=== PATIENT | female | born 1930 | race African-American/Black ===

== ENCOUNTER 2019-08-14 13:25 | Inpatient (IN) | payer OTHER ==
[~2019-08-14] VITALS: Ht 165.1 cm; Wt 55.4 kg
[~2019-08-14 13:25] MED LIST: ASPI-1158 PO; LIP40 PO; PHEN100C4 PO
[2019-08-14] MEDS ORDERED: LABETALOL 5MG/ML SYR 20 MG/4 ML SYRINGE IV ONE (14:15)
[2019-08-14 14:37] LABS: HEMATOCRIT. 25.2 % (36.0-48.0); HEMOGLOBIN. 8.4 g/dL (12.0-16.0); MEAN CORPUSCULAR HEMOGLOBIN 33.6 pg (28.0-32.0); MEAN CORPUSCULAR VOLUME 101.2 fL (81.0-99.0); MEAN PLATELET VOLUME 8.5 fl (7.4-10.4); PLATELET 268 x1000/uL (130-400); RED BLOOD CELL COUNT 2.49 mill/uL (4.2-5.4); RED CELL DISTRIBUTION WIDTH 13.6 % (11.6-14.6)
[2019-08-14 14:41] LABS: CLARITY URINE TURBID (CLEAR); COLOR URINE YELLOW (YELLOW); KETONES URINE NEGATIVE (NEGATIVE); LEUKOCYTE ESTERASE URINE 2+ (NEGATIVE); NITRITE URINE NEGATIVE (NEGATIVE); OCCULT BLOOD URINE NEGATIVE (NEGATIVE); PROTEIN URINE 3+ (NEGATIVE); SPECIFIC GRAVITY URINE 1.017 (1.005-1.030); UROBILINOGEN URINE 0.2 E.U./dL (0.2-1.0)
[2019-08-14 14:45] LABS: CHLORIDE 113 mEq/L (98-107)
[2019-08-14 14:55] LABS: D-DIMER 22.95 mg/L FEU (<0.50); INR 1.1; PROTHROMBIN TIME 11.9 sec (9.6-11.0)
[2019-08-14 14:56] LABS: CREATINE KINASE 112 IU/L (26-192)
[2019-08-14] MEDS ORDERED: NICARDIPINE 40MG/200ML PREMIX 200 ML IV STA ×2 (14:58→20:38)
[2019-08-14] MEDS ORDERED: AZITHROMYCIN 500 MG in DEXT 5% WATER 250 ML IV STA (15:06)
[2019-08-14] MEDS ORDERED: CEFTRIAXONE 1 G PREMIX 50 ML IV ONE (15:15)
[2019-08-14] MEDS ORDERED: DEXAMETHASONE 10 MG/ML VIAL IV ONE (15:15)
[2019-08-14] MEDS ORDERED: ACETAMINOPHEN 325MG TABLET PO PRN (16:15)
[2019-08-14] MEDS ORDERED: HYDRALAZINE 20MG/ML VIAL IV NR (16:15)
[2019-08-14] MEDS ORDERED: SODIUM CHLORIDE 0.45% 1,000 ML IV SCH (16:30)
[2019-08-14] MEDS ORDERED: ENOXAPARIN 30MG/0.3ML SYR SUBCUT SCH (17:00)
[2019-08-14] MEDS ORDERED: AMLODIPINE 5MG TABLET PO SCH (21:00)
[2019-08-14] MEDS: HYDRALAZINE HCL 100MG TABLET PO SCH (22:00)
[2019-08-14 22:05] LABS: PLATELET ESTIMATE NORMAL
[2019-08-15 04:22] LABS: BASOPHILS % 0.4 % (0.0-2.0); HEMATOCRIT. 23.8 % (36.0-48.0); HEMOGLOBIN. 8.2 g/dL (12.0-16.0); LYMPHOCYTES % 12.9 % (20.0-50.0); MEAN CORPUSCULAR HEMOGLOBIN 34.4 pg (28.0-32.0); MEAN CORPUSCULAR VOLUME 99.8 fL (81.0-99.0); MEAN PLATELET VOLUME 8.8 fl (7.4-10.4); MONOCYTES % 2.8 % (2.0-8.0); NEUTROPHILS % 83.9 % (40.0-76.0); PLATELET 230 x1000/uL (130-400); RED BLOOD CELL COUNT 2.39 mill/uL (4.2-5.4); RED CELL DISTRIBUTION WIDTH 13.5 % (11.6-14.6)
[2019-08-15] MEDS: ONDANSETRON HCL 4MG/2ML INJ IV PRN (06:57)
[2019-08-15] MEDS ORDERED: AMLODIPINE 10MG TABLET PO ONE (08:15)
[2019-08-15] MEDS: AMLODIPINE 10MG TABLET PO SCH (08:18)
[2019-08-15] MEDS: DEXAMETHASONE 10 MG/ML VIAL IV SCH (09:00)
[2019-08-15] MEDS: PANTOPRAZOLE SODIUM 40 MG/VIAL IV SCH (09:00)
[2019-08-15] MEDS: AZITHROMYCIN 500 MG TABLET PO SCH (09:00)
[2019-08-15] MEDS: SODIUM BICARBONATE 100 MEQ in DEXTROSE 5% WATER 1,000 ML IV SCH (11:30)
[2019-08-15] MEDS: HYDRALAZINE HCL 100MG TABLET PO SCH ×2 (14:00→18:10)
[2019-08-15] MEDS ORDERED: CEFTRIAXONE 1 G PREMIX 50 ML IV SCH (15:30)
[2019-08-15 17:26] LABS: BG DEOXYHEMOGLOBIN 2.1 % (0.0-5.0); BG FRACTION INSPIRED OXYGEN 28; BG METHEMOGLOBIN 0.2 % (0.0-1.5); BG OXYGEN SATURATION 97.9 % (92.0-98.5); BG OXYHEMOGLOBIN 97.7 % (94.0-97.0); BG PCO2 28.5 mmHg (35.0-45.0); BG PH 7.393 (7.350-7.450); BG PO2 109.5 mmHg (75.0-100.0); BG SAMPLE SITE RIGHT RADIAL; BG TOTAL HEMOGLOBIN 8.2 g/dL (12.0-18.0); BG VENT MODE NASAL CANNULA
[2019-08-15] MEDS ORDERED: CLONIDINE 0.2MG TABLET PO NR (19:00)
[2019-08-15] MEDS: NICARDIPINE 40MG/200ML PREMIX 200 ML IV PRN ×2 (21:54)
[2019-08-15] MEDS ORDERED: CLONIDINE 0.2MG TABLET PO SCH (22:00)
[2019-08-16] VITALS (34 sets, daily range): BP systolic 92–164; BP diastolic 45–82
[2019-08-16] MEDS ORDERED: NICARDIPINE 50 MG in SODIUM CHLORIDE 0.9% 230 ML IV PRN (03:30)
[2019-08-16] MEDS ORDERED: LOPHC5 PO (04:09)
[2019-08-16] MEDS ORDERED: HYDR-2510 MT (04:09)
[2019-08-16] MEDS ORDERED: KEPP500 PO (04:09)
[2019-08-16] MEDS ORDERED: CLON0.1T MT (04:10)
[2019-08-16] MEDS: HYDRALAZINE HCL 100MG TABLET PO SCH ×3 (05:33→22:10)
[2019-08-16 07:58] LABS: BG BASE EXCESS -5.2 mmol/L (-2.0-2.0); BG CARBOXYHEMOGLOBIN 0.4 % (0.5-1.5); BG DEOXYHEMOGLOBIN 1.7 % (0.0-5.0); BG FRACTION INSPIRED OXYGEN 28; BG HCO3 ACT 18.8 mmol/L (22.0-26.0); BG METHEMOGLOBIN 0.5 % (0.0-1.5); BG OXYGEN SATURATION 98.3 % (92.0-98.5); BG OXYHEMOGLOBIN 97.4 % (94.0-97.0); BG PCO2 30.1 mmHg (35.0-45.0); BG PH 7.414 (7.350-7.450); BG SAMPLE SITE RIGHT RADIAL; BG TOTAL HEMOGLOBIN 6.6 g/dL (12.0-18.0); BG VENT MODE NASAL CANNULA
[2019-08-16] MEDS: PANTOPRAZOLE SODIUM 40 MG/VIAL IV SCH ×2 (08:21→22:10)
[2019-08-16] MEDS: AZITHROMYCIN 500 MG TABLET PO SCH (08:22)
[2019-08-16] MEDS: DEXAMETHASONE 10 MG/ML VIAL IV SCH (08:22)
[2019-08-16] MEDS: AMLODIPINE 10MG TABLET PO SCH (08:22)
[2019-08-16] MEDS ORDERED: LIDOCAINE HCL 1% 20ML VIAL (Pyxis) INJ ONE (09:15)
[2019-08-16 09:26] LABS: PHOSPHORUS 3.9 mg/dL (2.5-4.9)
[2019-08-16] MEDS ORDERED: IPRATROPIUM/ALBUTEROL 0.5-3(2.5)MG/3ML NEB HHN PRN (10:00)
[2019-08-16] MEDS: SODIUM BICARBONATE 100 MEQ in DEXTROSE 5% WATER 1,000 ML IV SCH (10:18)
[2019-08-16 10:33] LABS: BASOPHILS % 0.1 % (0.0-2.0); LYMPHOCYTES % 16.7 % (20.0-50.0); MEAN CORPUSCULAR VOLUME 99.7 fL (81.0-99.0); MONOCYTES % 6.9 % (2.0-8.0); NEUTROPHILS % 76.3 % (40.0-76.0); PLATELET 220 x1000/uL (130-400); RED BLOOD CELL COUNT 1.89 mill/uL (4.2-5.4); RED CELL DISTRIBUTION WIDTH 13.2 % (11.6-14.6)
[2019-08-16 10:41] LABS: HEMATOCRIT. 18.8 % (36.0-48.0); HEMOGLOBIN. 6.4 g/dL (12.0-16.0)
[2019-08-16 12:23] LABS: TOTAL IRON BINDING CAPACITY 226 ug/dL (250-450)
[2019-08-16 12:41] LABS: FOLIC ACID (FOLATE) SERUM 8.8 ng/mL (>5.38)
[2019-08-16] MEDS ORDERED: DIATR MEGLU/DIATRIZOATE SOLN 30ML PO SCH (12:45)
[2019-08-16] MEDS: CLONIDINE 0.1MG TABLET PO SCH ×2 (13:48→22:11)
[2019-08-16] MEDS: CEFTRIAXONE 1 G PREMIX 50 ML IV SCH (18:59)
[2019-08-16 21:28] LABS: HEMATOCRIT 23.6 % (36.0-48.0); HEMOGLOBIN 8.3 g/dL (12.0-16.0)
[2019-08-16 21:35] LABS: INR 1.2; PROTHROMBIN TIME 12.2 sec (9.6-11.0)
[2019-08-17] VITALS (10 sets, daily range): BP systolic 121–153; BP diastolic 59–94
[2019-08-17] MEDS: CLONIDINE 0.1MG TABLET PO SCH ×3 (06:25→22:00)
[2019-08-17] MEDS: HYDRALAZINE HCL 100MG TABLET PO SCH ×3 (06:25→22:00)
[2019-08-17 06:37] LABS: BASOPHILS % 0.1 % (0.0-2.0); HEMATOCRIT. 22.4 % (36.0-48.0); HEMOGLOBIN. 7.7 g/dL (12.0-16.0); LYMPHOCYTES % 15.1 % (20.0-50.0); MEAN CORPUSCULAR HEMOGLOBIN 32.6 pg (28.0-32.0); MEAN CORPUSCULAR VOLUME 94.7 fL (81.0-99.0); MEAN PLATELET VOLUME 8.8 fl (7.4-10.4); NEUTROPHILS % 75.8 % (40.0-76.0); PLATELET 183 x1000/uL (130-400); RED BLOOD CELL COUNT 2.37 mill/uL (4.2-5.4); RED CELL DISTRIBUTION WIDTH 17.4 % (11.6-14.6)
[2019-08-17 07:11] LABS: HEPATITIS B SURFACE ANTIGEN NEGATIVE
[2019-08-17] MEDS: AZITHROMYCIN 500 MG TABLET PO SCH (08:33)
[2019-08-17] MEDS: FOLIC ACID/VITAMIN B COMP W-C TABLET PO SCH (08:33)
[2019-08-17] MEDS: PANTOPRAZOLE SODIUM 40 MG/VIAL IV SCH ×2 (08:33→22:00)
[2019-08-17] MEDS: AMLODIPINE 10MG TABLET PO SCH (08:33)
[2019-08-17] MEDS ORDERED: DIATR MEGLU/DIATRIZOATE SOLN 30ML PO NR (09:00)
[2019-08-17] MEDS: CEFTRIAXONE 1 G PREMIX 50 ML IV SCH (15:53)
[2019-08-17] MEDS: ONDANSETRON HCL 4MG/2ML INJ IV PRN (22:10)
[2019-08-18] VITALS: BP 140/74
[2019-08-18 04:00] VITALS: BP 149/69
[2019-08-18] MEDS: HYDRALAZINE HCL 100MG TABLET PO SCH ×3 (05:35→22:58)
[2019-08-18] MEDS: CLONIDINE 0.1MG TABLET PO SCH ×3 (05:36→22:58)
[2019-08-18 06:48] LABS: BASOPHILS % 0.2 % (0.0-2.0); EOSINOPHILS % 0.3 % (0.0-5.0); HEMATOCRIT. 23.8 % (36.0-48.0); LYMPHOCYTES % 30.6 % (20.0-50.0); MEAN CORPUSCULAR HEMOGLOBIN 32.1 pg (28.0-32.0); MEAN PLATELET VOLUME 8.8 fl (7.4-10.4); MONOCYTES % 10.6 % (2.0-8.0); NEUTROPHILS % 58.3 % (40.0-76.0); PLATELET 164 x1000/uL (130-400); RED BLOOD CELL COUNT 2.51 mill/uL (4.2-5.4)
[2019-08-18 08:00] VITALS: BP 142/77
[2019-08-18] MEDS: AMLODIPINE 10MG TABLET PO SCH (09:32)
[2019-08-18] MEDS: AZITHROMYCIN 500 MG TABLET PO SCH (09:32)
[2019-08-18] MEDS: FOLIC ACID/VITAMIN B COMP W-C TABLET PO SCH (09:32)
[2019-08-18] MEDS: PANTOPRAZOLE SODIUM 40 MG/VIAL IV SCH ×2 (10:39→21:00)
[2019-08-18 12:00] VITALS: BP 127/64
[2019-08-18] MEDS ORDERED: LIDOCAINE HCL 1% 20ML VIAL (Pyxis) INJ ONE (14:45)
[2019-08-18] MEDS ORDERED: SODIUM CHLORIDE 0.9% 10ML VIAL ONE (14:45)
[2019-08-18] MEDS: CEFTRIAXONE 1 G PREMIX 50 ML IV SCH (15:47)
[2019-08-18 16:00] VITALS: BP 178/76
[2019-08-18] MEDS: CLONIDINE 0.1MG TABLET PO PRN (16:36)
[2019-08-18 20:00] VITALS: BP 161/81
[2019-08-19] VITALS (7 sets, daily range): BP systolic 141–164; BP diastolic 69–95
[2019-08-19] MEDS: CLONIDINE 0.1MG TABLET PO SCH ×3 (05:27→21:20)
[2019-08-19] MEDS: HYDRALAZINE HCL 100MG TABLET PO SCH ×3 (05:27→21:21)
[2019-08-19 06:06] LABS: HEPATITIS B SURFACE AB < 3.1 mIU/mL
[2019-08-19 06:14] LABS: HEMATOCRIT. 23.3 % (36.0-48.0); MEAN CORPUSCULAR HEMOGLOBIN 32.5 pg (28.0-32.0); MEAN CORPUSCULAR VOLUME 94.6 fL (81.0-99.0); RED BLOOD CELL COUNT 2.46 mill/uL (4.2-5.4); RED CELL DISTRIBUTION WIDTH 16.8 % (11.6-14.6)
[2019-08-19 06:17] LABS: HEPATITIS B SURFACE ANTIGEN NEGATIVE
[2019-08-19 06:47] LABS: HEPATITIS A AB IGM NEGATIVE (NEGATIVE)
[2019-08-19] MEDS: AMLODIPINE 10MG TABLET PO SCH (08:08)
[2019-08-19] MEDS: PANTOPRAZOLE SODIUM 40 MG/VIAL IV SCH ×2 (08:08→21:20)
[2019-08-19] MEDS: FOLIC ACID/VITAMIN B COMP W-C TABLET PO SCH (08:08)
[2019-08-19] MEDS: AZITHROMYCIN 500 MG TABLET PO SCH (08:08)
[2019-08-19 11:05] LABS: PLATELET ESTIMATE NORMAL
[2019-08-19 11:06] LABS: PLATELET 128 x1000/uL (130-400)
[2019-08-19] MEDS: CEFTRIAXONE 1 G PREMIX 50 ML IV SCH (15:00)
[2019-08-20] VITALS (8 sets, daily range): BP systolic 123–156; BP diastolic 55–81
[2019-08-20] MEDS: CLONIDINE 0.1MG TABLET PO SCH ×3 (05:28→21:00)
[2019-08-20] MEDS: HYDRALAZINE HCL 100MG TABLET PO SCH ×3 (05:28→21:00)
[2019-08-20 05:39] LABS: HEMATOCRIT. 24.2 % (36.0-48.0); HEMOGLOBIN. 8.2 g/dL (12.0-16.0); MEAN CORPUSCULAR HEMOGLOBIN 32.2 pg (28.0-32.0); MEAN CORPUSCULAR VOLUME 95.3 fL (81.0-99.0); MEAN PLATELET VOLUME 8.8 fl (7.4-10.4); PLATELET 107 x1000/uL (130-400); RED BLOOD CELL COUNT 2.55 mill/uL (4.2-5.4); RED CELL DISTRIBUTION WIDTH 16.5 % (11.6-14.6)
[2019-08-20 07:57] LABS: PLATELET ESTIMATE DECREASED
[2019-08-20] MEDS: FOLIC ACID/VITAMIN B COMP W-C TABLET PO SCH (08:41)
[2019-08-20] MEDS: PANTOPRAZOLE SODIUM 40 MG/VIAL IV SCH ×2 (08:41→20:56)
[2019-08-20] MEDS: AZITHROMYCIN 500 MG TABLET PO SCH (08:42)
[2019-08-20] MEDS: AMLODIPINE 10MG TABLET PO SCH (08:42)
[2019-08-20] MEDS: CLONIDINE 0.1MG TABLET PO PRN (18:58)
[2019-08-21] VITALS (9 sets, daily range): BP systolic 130–181; BP diastolic 59–81
[2019-08-21] MEDS: CLONIDINE 0.1MG TABLET PO PRN ×2 (03:21→16:13)
[2019-08-21] MEDS: CLONIDINE 0.1MG TABLET PO SCH ×3 (05:51→21:38)
[2019-08-21] MEDS: HYDRALAZINE HCL 100MG TABLET PO SCH ×3 (05:51→21:37)
[2019-08-21 07:13] LABS: HEMATOCRIT. 23.1 % (36.0-48.0); HEMOGLOBIN. 7.9 g/dL (12.0-16.0); MEAN CORPUSCULAR HEMOGLOBIN 32.7 pg (28.0-32.0); MEAN CORPUSCULAR VOLUME 95.3 fL (81.0-99.0); RED BLOOD CELL COUNT 2.42 mill/uL (4.2-5.4); RED CELL DISTRIBUTION WIDTH 16.5 % (11.6-14.6)
[2019-08-21] MEDS: FOLIC ACID/VITAMIN B COMP W-C TABLET PO SCH (08:27)
[2019-08-21] MEDS: PANTOPRAZOLE SODIUM 40 MG/VIAL IV SCH ×2 (08:27→21:37)
[2019-08-21] MEDS: AMLODIPINE 10MG TABLET PO SCH (08:27)
[2019-08-21 09:24] LABS: PLATELET 110 x1000/uL (130-400)
[2019-08-21 09:33] LABS: PLATELET ESTIMATE SLIGHTLY DECREASED
[2019-08-21 10:44] LABS: TOTAL IRON BINDING CAPACITY 230 ug/dL (250-450)
[2019-08-22] VITALS (9 sets, daily range): BP systolic 114–159; BP diastolic 53–77
[2019-08-22] MEDS: HYDRALAZINE HCL 100MG TABLET PO SCH ×3 (05:51→21:18)
[2019-08-22] MEDS: CLONIDINE 0.1MG TABLET PO SCH ×3 (05:51→21:18)
[2019-08-22 06:07] LABS: HEMATOCRIT. 24.3 % (36.0-48.0); HEMOGLOBIN. 8.2 g/dL (12.0-16.0); MEAN CORPUSCULAR HEMOGLOBIN 32.3 pg (28.0-32.0); MEAN CORPUSCULAR VOLUME 95.9 fL (81.0-99.0); PLATELET 97 x1000/uL (130-400); RED BLOOD CELL COUNT 2.54 mill/uL (4.2-5.4); RED CELL DISTRIBUTION WIDTH 16.4 % (11.6-14.6)
[2019-08-22] MEDS: PANTOPRAZOLE SODIUM 40 MG/VIAL IV SCH ×2 (09:03→21:19)
[2019-08-22] MEDS: AMLODIPINE 10MG TABLET PO SCH (09:03)
[2019-08-22] MEDS: FOLIC ACID/VITAMIN B COMP W-C TABLET PO SCH (09:03)
[2019-08-22] MEDS: FERROUS SULFATE 300MG/5ML UDC PO SCH ×2 (09:03→17:26)
[2019-08-22 13:18] LABS: PLATELET ESTIMATE DECREASED
[2019-08-23] VITALS (19 sets, daily range): BP systolic 133–179; BP diastolic 56–85
[2019-08-23 06:12] LABS: BASOPHILS % 0.5 % (0.0-2.0); HEMATOCRIT. 23.7 % (36.0-48.0); HEMOGLOBIN. 8.1 g/dL (12.0-16.0); LYMPHOCYTES % 22.3 % (20.0-50.0); MEAN CORPUSCULAR VOLUME 96.3 fL (81.0-99.0); MEAN PLATELET VOLUME 8.9 fl (7.4-10.4); MONOCYTES % 10.2 % (2.0-8.0); PLATELET 105 x1000/uL (130-400); RED BLOOD CELL COUNT 2.46 mill/uL (4.2-5.4); RED CELL DISTRIBUTION WIDTH 16.6 % (11.6-14.6)
[2019-08-23] MEDS: CLONIDINE 0.1MG TABLET PO SCH ×2 (06:19→15:00)
[2019-08-23] MEDS: HYDRALAZINE HCL 100MG TABLET PO SCH ×2 (06:19→15:00)
[2019-08-23] MEDS: PANTOPRAZOLE SODIUM 40 MG/VIAL IV SCH (08:27)
[2019-08-23] MEDS: FERROUS SULFATE 300MG/5ML UDC PO SCH (08:27)
[2019-08-23] MEDS: AMLODIPINE 10MG TABLET PO SCH (08:27)
[2019-08-23] MEDS: FOLIC ACID/VITAMIN B COMP W-C TABLET PO SCH (08:27)
[2019-08-23] MEDS ORDERED: SODIUM BICARBONATE 4% (2.4MEQ) 5ML VIAL IV ONE (13:24)
[2019-08-23] MEDS ORDERED: LIDOCAINE HCL 1% 20ML VIAL (Pyxis) INJ ONE (13:24)
[2019-08-23] MEDS ORDERED: CEFAZOLIN 1000MG PREMIX 50 ML IV ONE (13:36)
[2019-08-23 13:51] LABS: PARTIAL THROMBOPLASTIN TIME 23.1 sec (23.4-31.0)
[2019-08-23] MEDS ORDERED: CEFAZOLIN 1000MG PREMIX 50 ML IV NR (14:00)
[2019-08-23] MEDS ORDERED: FENTANYL CITRATE/PF 50MCG/ML 2ML VIAL ONE (14:03)
[2019-08-23] MEDS ORDERED: FENTANYL CITRATE/PF 50MCG/ML 2ML VIAL IV ONE (14:15)
[2019-08-23] MEDS ORDERED: NEPVIT PO (15:45)
[2019-08-23] MEDS ORDERED: FE300LUD PO (15:45)
== END 2019-08-23 23:41 | disposition home or self-care (01) | DRG 871 ==
LOC: EDBEDREQ 14:07 → ER 14:22 → EDBEDREQ 15:07 → EDBEDREQSVC 15:07 → MICUSO 23:11 → CVICU 08-16 02:30 → 5EST 08-16 15:00
PROVIDERS: ADMIT Internal Medicine; ATTEND Internal Medicine
PROC: 05HY33Z Insertion of Infusion Device into Upper Vein, Percutaneous Approach (ICD-10-PCS; principal; 2019-08-16)
PROC: 30233N1 Transfusion of Nonautologous Red Blood Cells into Peripheral Vein, Percutaneous Approach (ICD-10-PCS; 2019-08-16)
PROC: 02HV33Z Insertion of Infusion Device into Superior Vena Cava, Percutaneous Approach (ICD-10-PCS; 2019-08-18)
PROC: B518ZZA Fluoroscopy of Superior Vena Cava, Guidance (ICD-10-PCS; 2019-08-18)
PROC: B548ZZA Ultrasonography of Superior Vena Cava, Guidance (ICD-10-PCS; 2019-08-18)
PROC: 5A1D70Z Performance of Urinary Filtration, Intermittent, Less than 6 Hours Per Day (ICD-10-PCS; 2019-08-18)
PROC: 5A1D70Z Performance of Urinary Filtration, Intermittent, Less than 6 Hours Per Day (ICD-10-PCS; 2019-08-19)
PROC: 5A1D70Z Performance of Urinary Filtration, Intermittent, Less than 6 Hours Per Day (ICD-10-PCS; 2019-08-21)
PROC: 02PYX3Z Removal of Infusion Device from Great Vessel, External Approach (ICD-10-PCS; 2019-08-23)
PROC: 0JH63XZ Insertion of Tunneled Vascular Access Device into Chest Subcutaneous Tissue and Fascia, Percutaneous Approach (ICD-10-PCS; 2019-08-23)
PROC: 02HV33Z Insertion of Infusion Device into Superior Vena Cava, Percutaneous Approach (ICD-10-PCS; 2019-08-23)
PROC: B518ZZA Fluoroscopy of Superior Vena Cava, Guidance (ICD-10-PCS; 2019-08-23)
DX: A41.9 Sepsis, unspecified organism (principal); J96.00 Acute respiratory failure, unspecified whether with hypoxia or hypercapnia; J18.9 Pneumonia, unspecified organism; E44.0 Moderate protein-calorie malnutrition; E87.2 Acidosis; N17.9 Acute kidney failure, unspecified; N39.0 Urinary tract infection, site not specified; I16.1 Hypertensive emergency; D68.59 Other primary thrombophilia; G93.40 Encephalopathy, unspecified; I13.0 Hypertensive heart and chronic kidney disease with heart failure and stage 1 through stage 4 chronic kidney disease, or unspecified chronic kidney disease; D64.9 Anemia, unspecified; E87.5 Hyperkalemia; N18.9 Chronic kidney disease, unspecified; G40.909 Epilepsy, unspecified, not intractable, without status epilepticus; E86.0 Dehydration; N28.1 Cyst of kidney, acquired; I50.9 Heart failure, unspecified; Z20.828 Contact with and (suspected) exposure to other viral communicable diseases; K57.90 Diverticulosis of intestine, part unspecified, without perforation or abscess without bleeding; K80.20 Calculus of gallbladder without cholecystitis without obstruction; Z79.82 Long term (current) use of aspirin; Z79.899 Other long term (current) drug therapy; Z68.20 Body mass index [BMI] 20.0-20.9, adult; Z86.718 Personal history of other venous thrombosis and embolism
CPT/HCPCS: 36415; 36558; 36589; 36600; 71045; 74176; 76770; 76937; 77001; 80048; 80053; 80185; 81003; 82140; 82270; 82375; 82550; 82575; 82607; 82728; 82746; 82805; 82962; 83036; 83540; 83550; 83605; 83615; 83880; 84100; 84145; 84156; 84484; 85014; 85018; 85025; 85049; 85379; 85384; 86140; 86705; 86706; 86709; 86803; 86850; 86900; 86920; 87340; 87804; 92610; 93005; 93306; 93970; 96365; 97162; 97166; 97530; 99152; 99153; 99291; C1725; C1750; C1752; C1769; C1887; C9113; J0360; J0456; J0690; J0696; J1100; J1642; J1650; J2405; J3010; J3490; J7050; J7060; J7070; P9016; Q9963; G0500; U0003-CS

== ENCOUNTER 2019-09-10 20:00 | Inpatient (IN) | payer OTHER ==
[~2019-09-10] VITALS: Ht 157.5 cm; Wt 45.4 kg
[~2019-09-10 20:00] MED LIST changes: +CLON0.1T MT; +FE300LUD PO; +HYDR-2510 MT; +KEPP500 PO; +LOPHC5 PO; +NEPVIT PO
[2019-09-10] MEDS ORDERED: ACETAMINOPHEN 325MG TABLET PO STA (22:05)
[2019-09-10 23:03] LABS: BASOPHILS % 1.3 % (0.0-2.0); EOSINOPHILS % 0.7 % (0.0-5.0); HEMATOCRIT. 28.4 % (36.0-48.0); HEMOGLOBIN. 9.3 g/dL (12.0-16.0); LYMPHOCYTES % 30.5 % (20.0-50.0); MEAN CORPUSCULAR HEMOGLOBIN 32.4 pg (28.0-32.0); MEAN CORPUSCULAR VOLUME 99.4 fL (81.0-99.0); MEAN PLATELET VOLUME 7.4 fl (7.4-10.4); MONOCYTES % 13.2 % (2.0-8.0); NEUTROPHILS % 54.3 % (40.0-76.0); PLATELET 268 x1000/uL (130-400); RED BLOOD CELL COUNT 2.86 mill/uL (4.2-5.4); RED CELL DISTRIBUTION WIDTH 17.8 % (11.6-14.6)
[2019-09-10 23:05] LABS: CHLORIDE 97 mEq/L (98-107)
[2019-09-10 23:10] LABS: PROTHROMBIN TIME 10.9 sec (9.6-11.0)
[2019-09-11 00:03] LABS: CLARITY URINE TURBID (CLEAR); COLOR URINE DARK YELLOW (YELLOW); KETONES URINE TRACE (NEGATIVE); LEUKOCYTE ESTERASE URINE 3+ (NEGATIVE); NITRITE URINE NEGATIVE (NEGATIVE); OCCULT BLOOD URINE NEGATIVE (NEGATIVE); PROTEIN URINE 3+ (NEGATIVE)
[2019-09-11] MEDS ORDERED: SODIUM CHLORIDE 0.9% 1,000 ML IV ONE (00:15)
[2019-09-11] MEDS ORDERED: CEFTRIAXONE 1 G PREMIX 50 ML IV ONE (01:00)
[2019-09-11] MEDS ORDERED: SORBITOL 70% SOLN 30ML PO ONE (08:45)
[2019-09-11] MEDS ORDERED: BISACODYL 10MG SUPP PR ONE (08:45)
[2019-09-11] MEDS ORDERED: ACETAMINOPHEN 325MG TABLET PO PRN (08:45)
[2019-09-11] MEDS ORDERED: ONDANSETRON HCL 4MG/2ML INJ IV PRN (08:45)
[2019-09-11] MEDS ORDERED: POTASSIUM CHLORIDE 20MEQ TABLET SR PO ONE (08:45)
[2019-09-11] MEDS ORDERED: CEFTRIAXONE 1 G PREMIX 50 ML IV SCH (08:45)
[2019-09-11] MEDS: AMLODIPINE 10MG TABLET PO SCH (09:15)
[2019-09-11] MEDS: CLONIDINE 0.1MG TABLET PO PRN (11:00)
[2019-09-11 12:00] VITALS: BP 171/69
[2019-09-11] MEDS ORDERED: HYDRALAZINE HCL 100MG TABLET PO SCH (12:45)
[2019-09-11 13:50] VITALS: BP 171/69
[2019-09-11 16:00] VITALS: BP_SYST 130; BP_SYST 172; BP_DIAS 65; BP_DIAS 70
[2019-09-11 16:15] LABS: BASOPHILS % 0.9 % (0.0-2.0); EOSINOPHILS % 1.1 % (0.0-5.0); HEMATOCRIT. 29.9 % (36.0-48.0); LYMPHOCYTES % 13.8 % (20.0-50.0); MEAN CORPUSCULAR HEMOGLOBIN 33.2 pg (28.0-32.0); MEAN PLATELET VOLUME 7.8 fl (7.4-10.4); MONOCYTES % 6.9 % (2.0-8.0); NEUTROPHILS % 77.3 % (40.0-76.0); PLATELET 286 x1000/uL (130-400); RED BLOOD CELL COUNT 3.02 mill/uL (4.2-5.4); RED CELL DISTRIBUTION WIDTH 17.8 % (11.6-14.6)
[2019-09-11] MEDS: POTASSIUM CHLORIDE 20MEQ TABLET SR PO NR ×2 (17:31→17:36)
[2019-09-11 20:00] VITALS: BP 157/57
[2019-09-11] MEDS: HYDRALAZINE HCL 100MG TABLET PO SCH (21:39)
[2019-09-11] MEDS: LEVETIRACETAM 500MG TABLET PO SCH (21:41)
[2019-09-11] MEDS ORDERED: CEFTRIAXONE 1,000 MG in DEXTROSE 5% WATER 50 ML IV SCH (23:00)
[2019-09-12] VITALS: BP 103/65
[2019-09-12] MEDS: CEFTRIAXONE 1,000 MG in DEXTROSE 5% WATER 50 ML IV SCH ×2 (00:04→20:52)
[2019-09-12 04:00] VITALS: BP 154/69
[2019-09-12] MEDS: HYDRALAZINE HCL 100MG TABLET PO SCH ×3 (06:37→20:53)
[2019-09-12 07:29] LABS: HEMATOCRIT. 29.6 % (36.0-48.0); HEMOGLOBIN. 9.7 g/dL (12.0-16.0); MEAN CORPUSCULAR HEMOGLOBIN 32.6 pg (28.0-32.0); MEAN CORPUSCULAR VOLUME 99.5 fL (81.0-99.0); MEAN PLATELET VOLUME 7.3 fl (7.4-10.4); PLATELET 260 x1000/uL (130-400); RED BLOOD CELL COUNT 2.97 mill/uL (4.2-5.4); RED CELL DISTRIBUTION WIDTH 17.8 % (11.6-14.6)
[2019-09-12 08:00] VITALS: BP 201/83
[2019-09-12] MEDS: LEVETIRACETAM 500MG TABLET PO SCH ×2 (09:19→20:54)
[2019-09-12] MEDS: AMLODIPINE 10MG TABLET PO SCH (09:19)
[2019-09-12] MEDS: CLONIDINE 0.1MG TABLET PO PRN (10:35)
[2019-09-12 11:53] LABS: ATYPICAL LYMPHOCYTES 1; PLATELET ESTIMATE NORMAL
[2019-09-12 12:00] VITALS: BP 149/54
[2019-09-12] MEDS ORDERED: NA PHOS,M-B/NA PHOS,DI-BA ENEMA 118ML PR NR (13:30)
[2019-09-12 16:00] VITALS: BP 166/56
[2019-09-12] MEDS: CLONIDINE 0.1MG TABLET PO SCH ×2 (17:20→20:54)
[2019-09-12 20:00] VITALS: BP 145/59
[2019-09-13] VITALS (7 sets, daily range): BP systolic 124–158; BP diastolic 48–66
[2019-09-13] MEDS: CLONIDINE 0.1MG TABLET PO SCH ×3 (06:03→21:03)
[2019-09-13] MEDS: HYDRALAZINE HCL 100MG TABLET PO SCH ×3 (06:03→21:03)
[2019-09-13 07:32] LABS: BASOPHILS % 1.2 % (0.0-2.0); EOSINOPHILS % 1.7 % (0.0-5.0); HEMOGLOBIN. 8.9 g/dL (12.0-16.0); LYMPHOCYTES % 22.9 % (20.0-50.0); MEAN CORPUSCULAR HEMOGLOBIN 32.9 pg (28.0-32.0); MEAN CORPUSCULAR VOLUME 99.7 fL (81.0-99.0); MONOCYTES % 7.7 % (2.0-8.0); NEUTROPHILS % 66.5 % (40.0-76.0); PLATELET 247 x1000/uL (130-400); RED CELL DISTRIBUTION WIDTH 17.7 % (11.6-14.6)
[2019-09-13] MEDS: AMLODIPINE 10MG TABLET PO SCH (09:21)
[2019-09-13] MEDS: LEVETIRACETAM 500MG TABLET PO SCH ×2 (09:21→21:02)
[2019-09-13] MEDS ORDERED: SORBITOL 70% SOLN 30ML PO NR (14:15)
[2019-09-13] MEDS ORDERED: NA PHOS,M-B/NA PHOS,DI-BA ENEMA 118ML PR NR (14:15)
[2019-09-13] MEDS ORDERED: HEPARIN SODIUM 1,000 UNIT/1ML VIAL IV NR (15:00)
[2019-09-13] MEDS ORDERED: LEVOFLOXACIN 500MG TABLET PO NR (22:00)
[2019-09-14] VITALS: BP 119/52
[2019-09-14 04:00] VITALS: BP 114/51
[2019-09-14] MEDS: HYDRALAZINE HCL 100MG TABLET PO SCH ×2 (05:48→13:05)
[2019-09-14] MEDS: CLONIDINE 0.1MG TABLET PO SCH ×2 (05:48→13:05)
[2019-09-14] MEDS: LEVETIRACETAM 500MG TABLET PO SCH (09:24)
[2019-09-14] MEDS: AMLODIPINE 10MG TABLET PO SCH (09:25)
[2019-09-14] MEDS ORDERED: HYDR100T26 PO (12:19)
[2019-09-14] MEDS ORDERED: DOCU250C14 MT (12:19)
[2019-09-14] MEDS ORDERED: LEVO500T2 MT (12:19)
[2019-09-14] MEDS ORDERED: AMLO10TA80 PO (12:19)
[2019-09-14] MEDS ORDERED: SORBITOL 70% SOLN 30ML PO NR (12:30)
[2019-09-14 20:00] VITALS: BP 139/70
[2019-09-15] MEDS ORDERED: LEVOFLOXACIN 250MG TABLET PO SCH (09:00)
== END 2019-09-14 21:30 | disposition home or self-care (01) | DRG 388 ==
LOC: ER 20:15 → 6EST 09-11 00:59 → ENRESERV 09-11 10:45
PROVIDERS: ADMIT Internal Medicine; ATTEND Internal Medicine
PROC: 5A1D70Z Performance of Urinary Filtration, Intermittent, Less than 6 Hours Per Day (ICD-10-PCS; principal; 2019-09-13)
PROC: 5A1D70Z Performance of Urinary Filtration, Intermittent, Less than 6 Hours Per Day (ICD-10-PCS; 2019-09-14)
DX: K56.7 Ileus, unspecified (principal); N18.6 End stage renal disease; I12.0 Hypertensive chronic kidney disease with stage 5 chronic kidney disease or end stage renal disease; N17.9 Acute kidney failure, unspecified; E44.1 Mild protein-calorie malnutrition; E87.1 Hypo-osmolality and hyponatremia; Z68.1 Body mass index [BMI] 19.9 or less, adult; E87.2 Acidosis; J98.11 Atelectasis; I31.3 Pericardial effusion (noninflammatory); N30.90 Cystitis, unspecified without hematuria; K56.41 Fecal impaction; G40.909 Epilepsy, unspecified, not intractable, without status epilepticus; F03.90 Unspecified dementia, unspecified severity, without behavioral disturbance, psychotic disturbance, mood disturbance, and anxiety; E87.8 Other disorders of electrolyte and fluid balance, not elsewhere classified; K57.90 Diverticulosis of intestine, part unspecified, without perforation or abscess without bleeding; E87.6 Hypokalemia; D63.8 Anemia in other chronic diseases classified elsewhere; N20.0 Calculus of kidney; M85.80 Other specified disorders of bone density and structure, unspecified site; K76.89 Other specified diseases of liver; D25.9 Leiomyoma of uterus, unspecified; K80.20 Calculus of gallbladder without cholecystitis without obstruction; I70.90 Unspecified atherosclerosis; Z99.2 Dependence on renal dialysis; Z79.82 Long term (current) use of aspirin; Z79.899 Other long term (current) drug therapy; Z87.442 Personal history of urinary calculi
CPT/HCPCS: 36415; 71045; 74018; 74176; 80048; 80053; 81003; 84484; 85025; 87077; 87186; 92610; 93005; 99285; J0696; J1644; J7030; J7060